=== PATIENT | female | born 1940 | race Caucasian/White ===

== ENCOUNTER → 2022-09-27 | Outpatient (CLI) | payer MEDICARE, OTHER ==
[~2022-09-27] MED LIST: ACET325 PO; ASCO500; ASPI81CH PO; FISH OIL 1,001000 MG PO; GLUC500 PO; GUAI600T33 PO; LEVSOD25 PO; LISI5 PO; MONT10T PO; NIAC500 PO; ONDA4ODT MM; POTASSIUM99 MG PO; TUMS500 MG PO
== END | disposition home or self-care (01) ==
LOC: LAB 17:50 → LAB SHORT 17:50
DX: L03.115 Cellulitis of right lower limb (principal)
CPT/HCPCS: 87070; 87077; 87186; 87205

== ENCOUNTER → 2023-04-06 | Outpatient (CLI) | payer MEDICARE, OTHER | LOC: LAB SHORT 16:47 → LAB 16:47 | DX: L02.01 Cutaneous abscess of face (principal) | CPT/HCPCS: 87070; 87077; 87147; 87186; 87205 ==

== ENCOUNTER → 2023-07-15 | Outpatient (CLI) | payer MEDICARE, OTHER ==
[2023-07-15 13:22] LABS: Appearance, Urine Clear (Clear); Bilirubin, Urine Neg (Neg); Blood, Urine Neg (Neg); Color, Urine Yellow (P-Yellow); Glucose Qualitative, Urine Neg (Neg); Ketones, Urine Neg (Neg); Leukocyte Esterase, Urine Neg (Neg); Nitrite, Urine Neg (Neg); Protein, Urine Neg (Neg); Urobilinogen, Urine NORM (Normal)
== END ==
LOC: LAB SHORT 09:20 → LAB 09:20 → EDSTATUS 07-10 14:45 → LAB FUT 07-10 14:45
PROVIDERS: Psychiatry & Neurology Neurology
DX: R32 Unspecified urinary incontinence (principal); R26.9 Unspecified abnormalities of gait and mobility
CPT/HCPCS: 81003

== ENCOUNTER → 2024-07-20 | Outpatient (CLI) | payer MEDICARE, OTHER | LOC: LAB 16:00 → LAB SHORT 16:00 | DX: R30.0 Dysuria (principal) | CPT/HCPCS: 87086 ==